=== PATIENT | female | born 1975 | race African-American/Black ===

== ENCOUNTER → 2020-01-07 | Outpatient (CLI) | payer OTHER ==
--- NOTE | 2020-01-07 14:04 | KCIC ---
EXAM: Bilateral digital screening mammogram. HISTORY: 44-year-old female presents for screening mammography. TECHNIQUE: Full-field digital craniocaudal and mediolateral oblique images of both breasts are obtained for evaluation. Computer aided detection with OBOOKD software version 9.3 was applied. COMPARISON: None. This is a baseline mammogram. BREAST PARENCHYMAL DENSITY: Level A - Mostly fat. FINDINGS: There is a small circumscribed nodule within the 4:00 position of the left breast at mid depth. There is a similar slightly larger circumscribed nodule within the posterior 3:00 position of the left breast which is likely an axillary tail lymph node. There are multiple benign calcifications within both breasts. There is no architectural distortion. IMPRESSION: BI-RADS Category 0: Incomplete. Additional imaging needed. RECOMMENDATION: Further evaluation with a left breast sonogram is recommended to assess a small nodule at the 4:00 position at mid depth and suspected axillary tail lymph node within the posterior 3:00 position. If your mammogram demonstrates that you have dense breast tissue, which could hide abnormalities, and if you have other risk factors for breast cancer that have been identified, you might benefit from supplemental screening tests that may be suggested by your ordering physician. Dense breast tissue, in and of itself, is a relatively common condition. This information is not provided to cause undue concern, but rather to raise your awareness and to promote discussion with your physician regarding the presence of other risk factors, in addition to dense breast tissue. A report of your mammography results will be sent to you and your physician. You should contact your physician if you have any questions or concerns regarding this report. Mammography is a sensitive method for finding small breast cancers, but it does not detect them all and is not a substitute for careful clinical examination. A negative mammogram does not negate a clinically suspicious finding and should not result in delay in biopsying a clinically suspicious abnormality. PQRS compliance statement - Patient information was entered into a reminder system with a target due date for the next mammogram. "Our facility is accredited by the [employer] Mammography Program." Electronically signed by: Julianna Hunter MD (01/07/2020 2:01 PM) [email or web address]
== END | disposition home or self-care (01) ==
LOC: KCIC MAMMO 13:28
PROVIDERS: ATTEND Registered Nurse
DX: Z12.31 Encounter for screening mammogram for malignant neoplasm of breast (principal); N64.89 Other specified disorders of breast
CPT/HCPCS: 77067

== ENCOUNTER → 2020-02-10 | Outpatient (CLI) | payer OTHER ==
--- NOTE | 2020-02-10 10:21 | KCIC ---
BREAST LEFT Clinical Indication: Reason: ABNORMAL MAMMOGRAM; LEFT BREAST CALLBACK / Spl. Instructions: / History: Comparison: Bilateral mammogram 01/07/2020. TECHNIQUE: Real-time ultrasound imaging of the left breast is performed. Findings: Corresponding to the tiny mass at the 3:00 C position there is a 4 mm intramammary lymph node 15 cm from the nipple at the 3:00 position. At the 4:00 position 6 cm from the nipple there is a 3 mm well-circumscribed lesion with internal echoes. There are no posterior acoustic features. Color Doppler interrogation is negative. There are no abnormal axillary lymph nodes. IMPRESSION: 1. At the 4:00 position 6 cm from the nipple there is a 3 mm hypoechoic mass that may be a complicated cyst. Recommend left breast ultrasound follow-up in 6 months to exclude possibility of a solid mass. 2. BI-RADS category 3, probably benign. Electronically signed by: Julius Bocanegra MD (02/10/2020 10:18 AM) [email or web address]
== END | disposition home or self-care (01) ==
LOC: KCIC US 08:55
PROVIDERS: ATTEND Registered Nurse
DX: N60.02 Solitary cyst of left breast (principal); N63.21 Unspecified lump in the left breast, upper outer quadrant
CPT/HCPCS: 76641